=== PATIENT | female | born 1945 | race Caucasian/White ===

== ENCOUNTER 2018-12-14 09:52 | Inpatient (IN) | payer MEDICARE, MEDICAID | END 2019-02-24 11:26 | disposition short-term general hospital (02) | LOC: ORTHO 4S 01-05 11:40 → ER 09:52 → ORTHO 4S 01-05 17:57 → ED HOLD 13:01 → ORTHO 4S 14:30 | DX: M84.451A Pathological fracture, right femur, initial encounter for fracture (principal); L89.304 Pressure ulcer of unspecified buttock, stage 4; G93.41 Metabolic encephalopathy; N17.0 Acute kidney failure with tubular necrosis; S72.401A Unspecified fracture of lower end of right femur, initial encounter for closed fracture; E11.65 Type 2 diabetes mellitus with hyperglycemia; Z87.11 Personal history of peptic ulcer disease; S82.891A Other fracture of right lower leg, initial encounter for closed fracture ==